=== PATIENT | female | born 1935 | race Caucasian/White ===

== ENCOUNTER 2017-09-15 10:50 | Outpatient (CLI) | payer MEDICARE, BC | END 2017-09-15 10:51 | disposition home or self-care (01) | LOC: BICRAD 10:50 | PROVIDERS: ATTEND Internal Medicine Gastroenterology | DX: K59.00 Constipation, unspecified (principal); R10.13 Epigastric pain; R06.02 Shortness of breath; I70.0 Atherosclerosis of aorta; R91.8 Other nonspecific abnormal finding of lung field; Z98.890 Other specified postprocedural states | CPT/HCPCS: 71046; 74019 ==

== ENCOUNTER 2017-09-20 14:10 | Outpatient (CLI) | payer MEDICARE, BC ==
--- NOTE | 2017-09-20 15:03 | ULT ---
RIGHT UPPER QUADRANT ULTRASOUND: History: Epigastric pain. Comparison: CT 01-24-17 FINDINGS: Pancreas is not well seen. The hepatic echotexture is coarsened. Main portal vein is patent with ante grade flow. Right kidney measures 10.5 x 4.7 x 4.8 cm without mass, hydronephrosis, or abnormal calcifications. G allbladder wall thickness is normal. The common bile duct is normal. IMPRESSION: 1. Increased hepatic echotexture suggestive of steatosis or other hepatic cellular disease. 2. Normal gallbladder. POS: [facility]
== END 2017-09-20 14:11 | disposition home or self-care (01) ==
LOC: ULT 14:10
PROVIDERS: ATTEND Internal Medicine Gastroenterology
DX: K59.03 Drug induced constipation (principal); R10.13 Epigastric pain; R06.02 Shortness of breath; K76.89 Other specified diseases of liver
CPT/HCPCS: 76705

== ENCOUNTER 2019-03-23 07:27 | Observation (INO) | payer MEDICARE, BC ==
[2019-03-23] MEDS ORDERED: Ondansetron PF 4 MG/2 ML Vial ONE (08:00)
[2019-03-23] MEDS ORDERED: Furosemide 40 MG/4 ML VIAL ONE (08:00)
[2019-03-23] MEDS ORDERED: Nitroglycerin 2% Ointment 1 INCH/1 GM Packet ONE (08:00)
[2019-03-23 08:12] LABS: #Basophils 0.1 thou/uL (0.0-0.2); #Lymphocytes 1.1 thou/uL (1.20-3.40); #Monocytes 0.5 thou/uL (0.11-0.59); #Neutrophils 9.4 thou/uL (1.40-6.50); %Basophils 0.5 % (0.0-1.0); %Eosinophils 0.3 % (0.0-10.0); %Monocytes 4.5 % (0.0-10.0); %Neutrophils 84.6 % (42.0-75.0); Hemoglobin 15.3 g/dL (12.0-16.0); Mean Corpuscular HGB CONC 33.2 g/dL (32.0-36.0); Mean Corpuscular Hemoglobin 29.8 pg (27.0-31.0); Mean Corpuscular Volume 89.6 fL (78.0-98.0); Mean Platelet Volume 7.5 fL (7.4-10.4); Platelet Count 331 thou/uL (130-400); RBC Distribution Width 11.4 % (11.5-14.5); Red Blood Cell (RBC) Count 5.13 mill/uL (4.20-5.40); White Blood Cell (WBC) Count 11.2 thou/uL (4.8-10.8)
[2019-03-23 09:05] LABS: ALT (SGPT) 29 U/L (8-55); AST (SGOT) 26 U/L (5-34); Albumin 4.6 g/dL (3.4-4.8); Alkaline Phosphatase 79 U/L (40-150); Anion Gap 13 mmol/L (10-20); BUN (Urea Nitrogen) 15 mg/dL (9.8-20.1); Bilirubin, Total 0.4 mg/dL (0.2-1.2); CK (CPK) 195 U/L (29-168); Calc. Creatinine Clearance 0 mL/min (70-130); Calcium 10.1 mg/dL (7.8-10.44); Carbon Dioxide 31 mmol/L (23-31); Chloride 96 mmol/L (98-107); Estimated GFR-MDRD 84; Globulin 3.9 g/dL (2.4-3.5); Glucose 114 mg/dL (83-110); Potassium 3.3 mmol/L (3.5-5.1); Protein, Total 8.5 g/dL (6.0-8.3); Sodium 137 mmol/L (136-145)
[2019-03-23] MEDS ORDERED: Acetaminophen 500 MG TAB ONE (09:46)
[2019-03-23] MEDS ORDERED: Metoclopramide HCl 10 MG/2 ML VIAL ONE (09:46)
[2019-03-23] MEDS ORDERED: Acetaminophen 325 MG/10.15 ML UDCUP ONE ×2 (09:52→09:54)
[2019-03-23] MEDS ORDERED: Benzonatate 100 MG CAP PO PRN (10:18)
[2019-03-23] MEDS ORDERED: Nitroglycerin 0.4 MG TAB (25 Tab Bottle) SL PRN (10:18)
[2019-03-23] MEDS ORDERED: Diabetic Tussin 200 MG/10 ML UDCUP PO PRN (10:18)
[2019-03-23] MEDS ORDERED: hydrALAZINE 20 MG/ML VIAL SLOW IVP PRN (10:18)
[2019-03-23] MEDS ORDERED: Senokot S 8.6-50 MG TAB PO PRN ×2 (10:18)
[2019-03-23] MEDS ORDERED: Acetaminophen 325 MG TAB PO PRN (10:18)
[2019-03-23] MEDS ORDERED: cloNIDine 0.1 MG TAB PO PRN (10:18)
[2019-03-23] MEDS ORDERED: Ondansetron PF 4 MG/2 ML Vial IVP PRN (10:18)
[2019-03-23] MEDS ORDERED: Sodium Chloride 0.65% Nasal 44 ML BOT EA NARE PRN (10:18)
[2019-03-23] MEDS ORDERED: Calcium Carbonate 500 MG ChewTAB PO PRN (10:18)
[2019-03-23] MEDS ORDERED: Bisacodyl 5 MG TAB PO PRN ×2 (10:18)
--- NOTE | 2019-03-23 11:04 | RAD ---
PORTABLE CHEST: HISTORY: Difficulty breathing. FINDINGS: Heart size is borderline with atherosclerotic change of the aorta. The lungs show some chronic adams e. No focal infiltrates. The patient reports a hiatal hernia, but it is difficult to definitely brady reciate a hernia. There is a questionable small hernia present. IMPRESSION: No acute changes. Questionable small hiatal hernia. POS: [facility]
[2019-03-23] MEDS ORDERED: Pantoprazole 40 MG VIAL IVP SCH (12:30)
[2019-03-23 12:58] VITALS: BMI 26.6
--- NOTE | 2019-03-23 13:21 | HP ---
PRIMARY CARE PHYSICIAN: Nathanael Rodriguez MD CHIEF COMPLAINT: Shortness of breath, nausea, vomiting, and diarrhea. HISTORY OF PRESENTING ILLNESS: Ms. Campbell is a pleasant 84-year-old female with past medical history of diverticulitis, hypertension, hypothyroidism, and history of skin cancer, who presented to the ER with above-mentioned complaints. History is mainly obtained from the patient herself and electronic medical records have been reviewed. Case has been discussed with the admitting ER physician, Dr. Guzman. Ms. Campbell reports that she has been in her usual health up until earlier this morning when she started to have severe abdominal cramp. She normally uses Fleet enema, but used water enema today and had two large bowel movements with relieving of the pain. Later, she started to feel short of breath, and shortly afterward, she started to have emesis of greenish stuff. Her blood pressure normally runs in the 130s, 140s to 150s range. It was not apparent if she is taking her medications or not, but it seems like that she does not really believe in it, though she has been prescribed "a water pill." She states that she may have not been taking it for the last few days. She also gives a history of a hiatal hernia and has been dealing with it for what seems like quite a few years. In her own words, she has been seen by multiple physicians all over [place], but she has not sought any surgical care for this. She takes a Nexium now and then for this, but it gives her a headache. She reports that her diet is very poor and she barely eats, though she does not lose any weight. She says that she drinks a huge amount of milk and bread and does not care for much solid food. She does eat a lot of Jell-O and whipped cream. Upon presentation to the emergency room, she was quite hypertensive with blood pressure systolic in the 210s to 220s range. Her chest x-ray, blood work, and EKG were rather within normal limits. Her BNP was normal. She received transdermal nitroglycerin as well as Lasix and Reglan along with Zofran in the ER with some improvement in her symptoms. She is now being admitted for workup for shortness of breath to rule out any cardiac causes. As per the patient's knowledge: She does not have any chronic lung diseases. She is a nonsmoker. PAST MEDICAL HISTORY: 1. Hypertension. 2. Dyslipidemia. 3. Hypothyroidism. 4. History of skin cancer. 5. History of diverticulitis, requiring colorectal surgery. This was done [place] [address] Lauren. PAST SURGICAL HISTORY: 1. . 2. Toe surgery. 3. Abdominoplasty. 4. Back surgery. 5. Bilateral knee surgery. 6. Surgery for diverticulitis. 7. Face lift. SOCIAL HISTORY: She is and lives with her . No history of drug, tobacco, or alcohol abuse. FAMILY HISTORY: No significant family history of coronary artery disease or stroke. Her father had colon cancer. REVIEW OF SYSTEMS: A 14-point review of systems was done and it is negative except for those mentioned in the history and physical. CODE STATUS: Full code discussed with the patient. ALLERGIES: IODINE AND SHELLFISH. HOME MEDICATIONS: As listed in the ER records: 1. Dyrenium, unknown dose. 2. [place] Thyroid, unknown dose. PHYSICAL EXAMINATION: VITAL SIGNS: Upon presentation, blood pressure 216/91, pulse of 82, respirations 20, temperature 98.6, and saturating 95% on room air. GENERAL: No acute distress. She is awake, alert, and oriented x3. Able to talk in full sentences, but does appear uncomfortable and holds her abdomen now and then. HEENT: Mucous membrane is moist and pink. No oropharyngeal exudate or erythema. Head is normocephalic and atraumatic. Pupils are equal and reactive to light and accommodation. Extraocular movement intact. NECK: Supple without any lymphadenopathy, JVD, or bruit. CHEST: Clear to auscultation without any wheezing, rales, or rhonchi. HEART: Rate and rhythm are regular without any murmurs, rubs, or gallops. ABDOMEN: Soft, nontender, and nondistended with positive bowel sounds. No rebound, guarding, or rigidity. She does not have any epigastric or right upper quadrant tenderness either. EXTREMITIES: Show trace pitting edema bilaterally. NEUROLOGIC: Examination is nonfocal. SKIN: Free of any rashes or bruises. Feels warm and dry to touch. PSYCHIATRIC: Normal affect. IMAGING STUDIES: Chest x-ray by my review does not show any significant pleural edema or any acute changes. A 12-lead EKG by my review shows normal sinus rhythm with some nonspecific T-wave abnormalities. IMPRESSION AND PLAN: 1. Dyspnea. Most likely scenario is flash pulmonary edema from uncontrolled hypertension. The patient does not have any history of cardiac disease per se. Her BNP and troponin are normal. 12-lead EKG by my review is normal sinus rhythm without any acute changes. We will get her blood pressure under control. Compliance seems to be a large issue as the patient states that she does not really like to take medications and it seems like she is also not taking her thyroid medications. We will continue transdermal nitroglycerin for now and get a transthoracic echocardiogram to rule out cardiac causes of her shortness of breath. There is no evidence to suggest any acute or chronic lung diseases clinically or on the chest x-ray. We will continue to trend serial cardiac enzymes. I will hold off on any more diuresis as she is not grossly fluid overloaded on my examination. We will start her on antihypertensives as necessary. Use p.r.n. antihypertensives for now. Also, check a TSH. 2. Hypertensive urgency. The patient has been noncompliant with her medication and the reports that the blood pressure runs in the 140s to 150s range at home. She was educated about medication compliance and comorbidities with uncontrolled hypertension. She will be started on her home medication once the dose is confirmed and adjusted as necessary. For the meanwhile, she is on transdermal nitroglycerin 0.5 inch three times a day. 3. Hiatal hernia. Her symptoms are being exacerbated by her hiatal hernia. Upon chart review, it seems like she has been seen by Dr. Lauren and Dr. Mendez in the past for similar problems. I have encouraged her to go back and get the hiatal hernia surgically fixed. She will be treated with IV Protonix for now. 4. Hypothyroidism. We will check her TSH and restart her home medication once the dose is confirmed. 5. Code status, full code discussed with the patient. 6. Deep venous thrombosis and gastrointestinal prophylaxis. DISPOSITION: Ms. Campbell is currently being admitted to the hospital with shortness of breath, likely due to flash pulmonary edema from uncontrolled hypertension. She is observation status. Further management will depend upon her clinical course. Job ID: [id number]
[2019-03-23] MEDS: Nitroglycerin 2% Ointment 1 INCH/1 GM Packet TOP SCH (15:58)
[2019-03-23] MEDS: HYDROcodone/Acetaminophen 10/325 mg Tablet PO SCH (17:55)
[2019-03-23] MEDS: Famotidine 20 MG TAB PO SCH (19:37)
[2019-03-24] MEDS: HYDROcodone/Acetaminophen 10/325 mg Tablet PO SCH ×4 (01:37→17:32)
[2019-03-24] MEDS: Nitroglycerin 2% Ointment 1 INCH/1 GM Packet TOP SCH ×2 (01:38→09:06)
[2019-03-24] MEDS: Thyroid 30 MG TAB PO SCH (05:35)
[2019-03-24] MEDS: Ondansetron PF 4 MG/2 ML Vial IVP PRN (05:48)
[2019-03-24 06:13] LABS: #Lymphocytes 1.2 thou/uL (1.20-3.40); #Monocytes 0.8 thou/uL (0.11-0.59); #Neutrophils 11.3 thou/uL (1.40-6.50); %Basophils 0.3 % (0.0-1.0); %Eosinophils 0.3 % (0.0-10.0); %Monocytes 6.1 % (0.0-10.0); %Neutrophils 84.3 % (42.0-75.0); Hemoglobin 15.3 g/dL (12.0-16.0); Mean Corpuscular HGB CONC 33.3 g/dL (32.0-36.0); Mean Corpuscular Hemoglobin 29.7 pg (27.0-31.0); Mean Corpuscular Volume 89.2 fL (78.0-98.0); Mean Platelet Volume 7.5 fL (7.4-10.4); Platelet Count 327 thou/uL (130-400); RBC Distribution Width 11.1 % (11.5-14.5); Red Blood Cell (RBC) Count 5.15 mill/uL (4.20-5.40); White Blood Cell (WBC) Count 13.3 thou/uL (4.8-10.8)
[2019-03-24 06:32] LABS: Anion Gap 12 mmol/L (10-20); BUN (Urea Nitrogen) 17 mg/dL (9.8-20.1); Calc. Creatinine Clearance 65 mL/min (70-130); Calcium 9.8 mg/dL (7.8-10.44); Carbon Dioxide 29 mmol/L (23-31); Chloride 97 mmol/L (98-107); Estimated GFR-MDRD 84; Glucose 139 mg/dL (83-110); Sodium 135 mmol/L (136-145)
[2019-03-24] MEDS: Famotidine 20 MG TAB PO SCH ×2 (09:10→20:03)
[2019-03-24] MEDS: Triamterene/Hydrochlorothiazide 37.5 mg/25 mg Tablet PO SCH (09:11)
[2019-03-24] MEDS: Enoxaparin Sodium 40 MG/0.4 ML SYRINGE SC SCH (09:12)
[2019-03-24] MEDS: Pantoprazole 40 MG VIAL IVP SCH (09:12)
[2019-03-24] MEDS ORDERED: Potassium Chloride 20 MEQ TAB PO SCH (09:15)
--- NOTE | 2019-03-24 15:07 | PDOC.PN ---
- Subjective Encounter Start Date: 03/24/19 Encounter Start Time: 15:05 Subjective: no CP/SOB but c/o worsening problems with food -: wants to be seen by surgeon .h/o hital hernia -: refuses to go home as she is not able to eat more than few bites - Objective Resuscitation Status - Order Detail: 03/23/19 12:25 Resuscitation Status Routine Resuscitation Status: FULL: Full Resuscitation Discussed with: discussed with patient MAR Reviewed: Yes Vital Signs & Weight: Vital Signs (12 hours) Temp Pulse Resp BP BP Pulse Ox 03/24/19 11:09 97.9 F 76 20 167/74 H 92 L 03/24/19 08:25 99.6 F 93 20 137/71 91 L 03/24/19 03:45 98.2 F 84 18 146/72 H 95 Weight Weight 145 lb 9 oz I&O: 03/23/19 03/24/19 03/25/19 06:59 06:59 06:59 Intake Total 502 Output Total 450 Balance 52 Result Diagrams: 03/24/19 05:58 03/24/19 05:58 Additional Labs: Laboratory Tests 03/23/19 03/23/19 03/23/19 07:54 13:11 13:11 Troponin I Less than 0.010 0.014 TSH 3rd Generation 0.8017 03/23/19 16:57 Troponin I Less than 0.010 TSH 3rd Generation Phys Exam - Physical Examination Constitutional: NAD tearful HEENT: PERRLA, moist MMs, sclera anicteric, oral pharynx no lesions Neck: no nodes, no JVD, supple, full ROM Respiratory: no wheezing, no rales, no rhonchi, clear to auscultation bilateral Cardiovascular: RRR, no significant murmur Gastrointestinal: soft, non-tender, no distention, positive bowel sounds Musculoskeletal: no edema, pulses present Neurological: non-focal, normal sensation, moves all 4 limbs Psychiatric: A&O x 3 Skin: no rash Dx/Plan (1) Dyspnea Code(s): R06.00 - DYSPNEA, UNSPECIFIED Status: Acute Comment: improved.ECHO pending (2) Hypertensive urgency Code(s): I16.0 - HYPERTENSIVE URGENCY Status: Resolved Comment: improved. Stop TD NG.cont traimeterene (3) Hiatal hernia Code(s): K44.9 - DIAPHRAGMATIC HERNIA WITHOUT OBSTRUCTION OR GANGRENE Status: Chronic Comment: GI work up was done as an outpatient recently. will get records - Plan plan discussed w/ family, DVT proph w/SCDs cardiac work up essentailly unremarkable so far.suspect symmptoms more d/t -: hiatal hernia.pt and very distraught as she is not eating much -: discussed w PCP DR. Rodriguez who has not seen them for a while -: noted OP GI work up done but they requesting GS consult inpt -: will request Dr. rico to advice on this as problem seems chronic * . Review of Systems - Review of Systems Constitutional: weakness, malaise. negative: fever, chills, sweats, other Respiratory: negative: Cough, Dry, Shortness of Breath, Hemoptysis, SOB with Excertion, Pleuritic Pain, Sputum, Wheezing Cardiovascular: negative: chest pain, palpitations, orthopnea, paroxysmal nocturnal dyspnea, edema, light headedness, other Gastrointestinal: Nausea, Other. negative: Vomiting, Abdominal Pain, Diarrhea, Constipation, Melena, Hematochezia Genitourinary: negative: Dysuria, Frequency, Incontinence, Hematuria, Retention , Other Musculoskeletal: negative: Neck Pain, Shoulder Pain, Arm Pain, Back Pain, Hand Pain, Leg Pain, Foot Pain, Other Skin: negative: Rash, Lesions, Yovany, Bruising, Other Neurological: negative: Weakness, Numbness, Incoordination, Change in Speech, Confusion, Seizures, Other - Medications/Allergies Allergies/Adverse Reactions: Allergies Allergy/AdvReac Type Severity Reaction Status Date / Time iodine Allergy Severe Verified 03/23/19 13:13 shellfish derived Allergy Severe Verified 03/23/19 13:13 Medications: Current Medications Acetaminophen (Tylenol) 650 mg PO Q4H PRN PRN Reason: Headache/Fever/Mild Pain (1-3) Hydrocodone Bitart/Acetaminophen ([place] 10/325) 1 tab PO Q6HR [place] Last Admin: 03/24/19 11:39 Dose: Not Given Benzonatate (Tessalon) 100 mg PO Q6H PRN PRN Reason: Cough Bisacodyl (Dulcolax) 10 mg PO DAILYPRN PRN PRN Reason: Constipation Calcium Carbonate (Tums) 1,000 mg PO Q4H PRN PRN Reason: Heartburn or Indigestion Clonidine (Catapres) 0.1 mg PO Q4H PRN PRN Reason: SBP > _160___ Enoxaparin Sodium (Lovenox) 40 mg SC 0900 [facility] Last Admin: 03/24/19 09:12 Dose: 40 mg Famotidine (Pepcid) 20 mg PO BID [facility] Last Admin: 03/24/19 09:10 Dose: 20 mg Guaifenesin (Robitussin Sf) 200 mg PO Q4H PRN PRN Reason: Cough Hydralazine HCl (Apresoline) 10 mg SLOW IVP Q4H PRN PRN Reason: SBP > 170 and HR < 70 Nitroglycerin (Nitrostat) 0.4 mg SL Q5MIN PRN PRN Reason: Chest Pain Ondansetron HCl (Zofran) 4 mg IVP Q6H PRN PRN Reason: Nausea/Vomiting Last Admin: 03/24/19 05:48 Dose: 4 mg Pantoprazole Sodium (Protonix) 40 mg IVP DAILY [facility] Last Admin: 03/24/19 09:12 Dose: 40 mg Senna/Docusate Sodium (Senokot S) 2 tab PO BID PRN PRN Reason: Constipation Sodium Chloride ([place] Nasal [place] 0.65%) 0 ml EA NARE QIDPRN PRN PRN Reason: Nasal Congestion Thyroid ([place] Thyroid) 30 mg PO 0600 [facility] Last Admin: 03/24/19 05:35 Dose: Not Given Triamterene/HCTZ (Maxzide-25) 0.5 tab PO DAILY [facility] Last Admin: 03/24/19 09:11 Dose: 0.5 tab
--- NOTE | 2019-03-24 15:20 | CON ---
DATE OF CONSULTATION: CHIEF COMPLAINT: Nausea, vomiting, vertigo, and dysphagia. HISTORY: The patient is an 84-year-old female, who reports about a 2-month history of progressive dysphagia. She says it occurs with both solids and liquids and usually after 2 to 3 bites that has been followed by bilious vomiting. She says she has not had any weight loss. She says drinking coffee helps. She said that she developed the room spinning yesterday when she was admitted, that resolved when they put oxygen on her. PAST MEDICAL HISTORY: Significant for hypertension, dyslipidemia, hypothyroidism, diverticulitis. PAST SURGICAL HISTORY: She has had an abdominoplasty, knee surgery, liposuction, breast reduction and reconstruction. She had a colon resection by Dr. Lauren for a colonic stricture complicated by ventral hernia that was repaired. She has had a lumbar back surgery as well as spinal stimulator placement and removal. SOCIAL HISTORY: She is . No tobacco or alcohol. FAMILY HISTORY: Mother had hypertension. Father had colon cancer. ALLERGIES: SHE HAS ALLERGIES TO SHELLFISH AND POSSIBLY IODINE. MEDICATIONS: 1. Dyrenium. 2. [place] Thyroid. PHYSICAL EXAMINATION: VITAL SIGNS: Temperature 97.9, pulse 79, blood pressure 167/74. GENERAL: She is a well-developed, well-nourished, somewhat anxious female, very talkative, does not appear to be in any distress. HEENT: Unremarkable. LUNGS: Clear. HEART: Regular rate and rhythm. ABDOMEN: Soft, nontender. She has a well-healed surgical scar, midline. No filling hernias. No tenderness. EXTREMITIES: Unremarkable. LABORATORY DATA: Her white count is 13, hemoglobin and hematocrit are 15 and 46, platelet count 327. Electrolytes; her potassium is 3, sodium 135, chloride 97, glucose 139. She had a chest x-ray that was clear. They really could not see any hiatal hernia on that, although she has been told she has one. She had a CT that showed hiatal hernia. She underwent EGD at that time. They did biopsies, showed erosive esophagitis. ASSESSMENT: Possible hiatal hernia. PLAN: Barium swallow. GI consultation. Job ID: [id number]
--- NOTE | 2019-03-24 21:51 | CON ---
DATE OF CONSULTATION: 03/24/2019 CHIEF COMPLAINT: Nausea and discomfort in the upper epigastric region. HISTORY OF PRESENT ILLNESS: Ms. Campbell woke up yesterday morning with dizziness and shortness of breath. She went to the bathroom and used an enema and passed a watery stool. After that, she has had no further diarrhea. She has had no ongoing abdominal pain, however, she has had persistent problems with nausea after eating. She can tolerate 2 or 3 spoonfuls of food and any more oral intake beyond that causes her to become nauseated and go out and vomit. When she eats she has to also drink water to push the food bolus down. She presented with hypertensive urgency to the emergency room with a blood pressure in the 210-220s range. She was treated with transdermal nitroglycerin with improvement. She underwent EGD and colonoscopy [address] Mendez[address] The colonoscopy showed diverticulosis of the sigmoid colon and an anastomosis at the site of previous sigmoid resection. A moderate hiatal hernia was noted as well as mild grade A erosive esophagitis. She has had chronic constipation. She takes opioid pain medication daily. She uses MiraLAX daily and sometimes uses fiber daily with it as well. To achieve a bowel movement, she gives herself a water enema and then passes a few small stools after the enemas. She has 1 or 2 bowel movements a day with the enema. PAST MEDICAL HISTORY: Hypertension, hypothyroidism, hyperlipidemia, skin cancer. PAST SURGICAL HISTORY: Colon resection for recurrent diverticulitis, toe surgery, abdominoplasty, spine surgery, knee surgery, diverticulitis, face-lift, breast surgery. Of note, she did have a polyp at the GE junction that was biopsied at the time of the previous endoscopy. This showed benign glandular mucosa with focal cells suggestive of early Galeano's. FAMILY HISTORY: Positive for colon cancer in her father. SOCIAL HISTORY: No alcohol, tobacco, or drugs. ALLERGIES: IODINE AND SHELLFISH. MEDICATIONS: Prior to admission, she takes an opioid pain medication, but could not recall the name. She takes Dyrenium, questionable compliance and also [place] Thyroid. REVIEW OF SYSTEMS: Negative x10 systems reviewed except as stated in the history of present illness. PHYSICAL EXAMINATION: VITAL SIGNS: Temperature 97.7, pulse 78, oxygen saturation 92% on room air, blood pressure 142/78. GENERAL: She is in no acute distress. She is alert and oriented x3. HEENT: Eyes have no scleral icterus. Oropharynx is clear without lesions. No cervical or supraclavicular lymphadenopathy. LUNGS: Clear to auscultation bilaterally. HEART: Regular rate and rhythm without murmur. ABDOMEN: Soft, nontender, and nondistended. Bowel sounds are present. EXTREMITIES: No lower extremity edema. LABORATORY DATA: White blood cell count 13.3, hemoglobin 15.3, platelets 327. Sodium 135, chloride 97, potassium 3.0, CO2 29, BUN 17, creatinine 0.67, bilirubin 0.4, AST 26, ALT 29, alkaline phosphatase 79, albumin 4.6. IMAGING: Her last ultrasound of the abdomen was in September of 2017, that showed a normal gallbladder with some signs of hepatic steatosis. She had CT scan of the abdomen and pelvis in January of 2017 that showed the postoperative changes from her previous colon resection and a hiatal hernia. IMPRESSION: 1. Early satiety and nausea. She feels sick if she takes more than 2 or 3 bites of food at a time. 2. Dysphagia. She has to frances her food bolus down with water. 3. Hiatal hernia. She has a moderate hiatal hernia, however, really denies reflux or heartburn symptoms. She does have the above noted mild dysphagia, but the more concerning symptom is nausea with any intake of significant volume. Her symptoms are not just clearly secondary to the hiatal hernia. We still would need to rule out peptic ulcer, gastritis, gastric cancer or esophageal stricture. Endoscopy really should be the next step. RECOMMENDATIONS: 1. I did offer endoscopy for tomorrow morning. The patient states that she does not need an endoscopy done that she needs surgeon and that she will consider following up with Dr. Mendez in the future, but does not want to have anything done currently. Dr. Mendez is available for endoscopy tomorrow, if she would be agreeable. 2. She was seen by Dr. Smith today as well, and she has barium swallow scheduled for tomorrow. Hopefully that will give us the necessary information to tell us the next best step. Ideally, she should have an adequate trial of PPI as the next step in treatment, however she had problems with headaches with Nexium previously. We should see how she does with an alternative PPI. We have pantoprazole here. 3. 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 This is not her main concern and she does not really wish to address that right now anyway. In the future, if it is determined what medicine she is taking, there are some other options for opioid- induced constipation, but for now what she is doing seems to be adequate. 4. I will sign off. Please call, if GI can be of assistance. Job ID: [id number] [facility]ENTERJameson
[2019-03-25] MEDS: HYDROcodone/Acetaminophen 10/325 mg Tablet PO SCH ×4 (00:10→16:46)
[2019-03-25] MEDS: Ondansetron PF 4 MG/2 ML Vial IVP PRN ×2 (05:43→16:46)
[2019-03-25] MEDS: Thyroid 30 MG TAB PO SCH (05:47)
[2019-03-25] MEDS ORDERED: diphenhydrAMINE 25 MG CAP PO PRN (09:02)
[2019-03-25] MEDS: Enoxaparin Sodium 40 MG/0.4 ML SYRINGE SC SCH (09:06)
[2019-03-25] MEDS: Triamterene/Hydrochlorothiazide 37.5 mg/25 mg Tablet PO SCH (09:06)
[2019-03-25] MEDS: Famotidine 20 MG TAB PO SCH ×2 (09:06→21:56)
[2019-03-25] MEDS: Pantoprazole 40 MG VIAL IVP SCH (09:07)
--- NOTE | 2019-03-25 09:21 | RAD ---
Esophagram HISTORY: Dysphagia. FINDINGS: Single column barium evaluation shows small sliding hiatal hernia. Diminished primary and s econdary peristalsis of the esophagus. There are nonpropulsive, tertiary type contractions at real-time fluoroscopy. Moderate amount of contrast within the mid to distal esophagus upon reflux. A 12 mm barium tablet traversed the esophagus without holdup. Calcification over the aortic arch. Fluoroscopy time 0.9 minutes. IMPRESSION: Small sliding hiatal hernia. Moderate amount of gastroesophageal reflux. Presbyesophagus. No evidence of obstruction. Atherosclerosis.
[2019-03-25] MEDS ORDERED: hydrALAZINE 20 MG/ML VIAL SLOW IVP PRN (12:42)
--- NOTE | 2019-03-25 13:37 | PRG ---
DATE OF SERVICE: 03/25/2019 SUBJECTIVE: The patient still has some nausea. No vomiting. OBJECTIVE: On exam, her temperature is 99.2, pulse 102, blood pressure is 121/74. She looks okay. She has some mild epigastric pain. The barium swallow showed that she does have a very small hiatal hernia, nothing causing obstruction. She did have chronic tertiary contractions of the esophagus. ASSESSMENT: Dysmotility. PLAN: GI consultation. Job ID: [id number]
--- NOTE | 2019-03-25 17:28 | PDOC.PN ---
- Subjective Encounter Start Date: 03/25/19 Encounter Start Time: 17:26 Subjective: continues to complain of nausea and difficulty eating,heartburn,pain -: would not let me discuss possible etiology & need for EGD.got upset as she -: has "read medical books and knows her problem is hiatal hernia only" refuses any GI work up - Objective Resuscitation Status - Order Detail: 03/23/19 12:25 Resuscitation Status Routine Resuscitation Status: FULL: Full Resuscitation Discussed with: discussed with patient MAR Reviewed: Yes Vital Signs & Weight: Vital Signs (12 hours) Temp Pulse Resp BP Pulse Ox 03/25/19 15:17 99 F 93 18 138/80 94 L 03/25/19 11:17 99.2 F 102 H 18 121/74 95 03/25/19 07:18 99.4 F 103 H 18 148/62 H 95 03/25/19 06:25 97 20 126/58 L 97 Weight Admit Weight 145 lb 9 oz Weight 145 lb 9 oz I&O: 03/24/19 03/25/19 03/26/19 06:59 06:59 06:59 Intake Total 502 752 Output Total 450 Balance 52 752 Result Diagrams: 03/24/19 05:58 03/24/19 05:58 Radiology Reviewed by me: Yes (ECHO-NL EF.Mild idastolic dysFx) Phys Exam - Physical Examination Constitutional: NAD HEENT: PERRLA, moist MMs, sclera anicteric, oral pharynx no lesions Neck: no nodes, no JVD, supple, full ROM Respiratory: no wheezing, no rales, no rhonchi, clear to auscultation bilateral Cardiovascular: RRR, no significant murmur Gastrointestinal: soft, non-tender, no distention, positive bowel sounds Musculoskeletal: no edema, pulses present Neurological: non-focal, normal sensation, moves all 4 limbs Psychiatric: normal affect, A&O x 3 Skin: no rash Dx/Plan (1) Dyspnea Code(s): R06.00 - DYSPNEA, UNSPECIFIED Status: Acute Comment: improved.ECHO with mild diastolic dysFx.suspect issues ar emore GI than Cardiac (2) Hypertensive urgency Code(s): I16.0 - HYPERTENSIVE URGENCY Status: Resolved Comment: improved. Stop TD NG.cont traimeterene (3) Hiatal hernia Code(s): K44.9 - DIAPHRAGMATIC HERNIA WITHOUT OBSTRUCTION OR GANGRENE Status: Chronic Comment: GI work up was done as an outpatient recently. will get records - Plan plan discussed w/ family Pt exhibiting bizzare beliefs.suspect that she may have symtpoms d/t reflux -: need to r/o malignacy/barrette's by EGD but keeps refusing. -: was not taking nexium at home d/y headache.tolerating protonix here so far -: Barium swollow shows small hernia but more reflux. -: carla defer to GI and GS as to how to proceed w difficult pt. * .Pt refused to talk to me about alternative possible diagnoses and continues to c/o symptoms * HD stable. * BP controlled. * no ACS or CHF. Review of Systems - Review of Systems Constitutional: malaise. negative: fever, chills, sweats, weakness, other ENT: negative: Ear Pain, Ear Discharge, Nose Pain, Nose Discharge, Nose Congestion, Mouth Pain, Mouth Swelling, Throat Pain, Throat Swelling, Other Cardiovascular: negative: chest pain, palpitations, orthopnea, paroxysmal nocturnal dyspnea, edema, light headedness, other Gastrointestinal: Nausea, Abdominal Pain. negative: Vomiting, Diarrhea, Constipation, Melena, Hematochezia, Other Genitourinary: negative: Dysuria, Frequency, Incontinence, Hematuria, Retention , Other Skin: negative: Rash, Lesions, Yovany, Bruising, Other Neurological: negative: Weakness, Numbness, Incoordination, Change in Speech, Confusion, Seizures, Other - Medications/Allergies Allergies/Adverse Reactions: Allergies Allergy/AdvReac Type Severity Reaction Status Date / Time iodine Allergy Severe Verified 03/25/19 10:55 shellfish derived Allergy Severe Verified 03/23/19 13:13 hydralazine [From Apresoline] Allergy Intermediate Rash Verified 03/25/19 10:55 Medications: Current Medications Acetaminophen (Tylenol) 650 mg PO Q4H PRN PRN Reason: Headache/Fever/Mild Pain (1-3) Hydrocodone Bitart/Acetaminophen ([place] 10/325) 1 tab PO Q6HR [facility] Last Admin: 03/25/19 16:46 Dose: Not Given Benzonatate (Tessalon) 100 mg PO Q6H PRN PRN Reason: Cough Bisacodyl (Dulcolax) 10 mg PO DAILYPRN PRN PRN Reason: Constipation Calcium Carbonate (Tums) 1,000 mg PO Q4H PRN PRN Reason: Heartburn or Indigestion Clonidine (Catapres) 0.1 mg PO Q4H PRN PRN Reason: SBP > _160___ Last Admin: 03/24/19 16:00 Dose: 0.1 mg Diphenhydramine HCl (Benadryl) 25 mg PO Q6H PRN PRN Reason: Itching & Insomnia Last Admin: 03/25/19 09:06 Dose: 25 mg Enoxaparin Sodium (Lovenox) 40 mg SC 0900 [facility] Last Admin: 03/25/19 09:06 Dose: 40 mg Famotidine (Pepcid) 20 mg PO BID [facility] Last Admin: 03/25/19 09:06 Dose: 20 mg Guaifenesin (Robitussin Sf) 200 mg PO Q4H PRN PRN Reason: Cough Hydralazine HCl (Apresoline) 10 mg SLOW IVP Q4H PRN PRN Reason: SBP > 170 and HR < 70 Nitroglycerin (Nitrostat) 0.4 mg SL Q5MIN PRN PRN Reason: Chest Pain Ondansetron HCl (Zofran) 4 mg IVP Q6H PRN PRN Reason: Nausea/Vomiting Last Admin: 03/25/19 16:46 Dose: 4 mg Pantoprazole Sodium (Protonix) 40 mg PO DAILY [facility] Senna/Docusate Sodium (Senokot S) 2 tab PO BID PRN PRN Reason: Constipation Sodium Chloride ([place] Nasal [place] 0.65%) 0 ml EA NARE QIDPRN PRN PRN Reason: Nasal Congestion Sodium Chloride (Flush - Normal Saline) 10 ml IVF PRN PRN PRN Reason: Saline Flush Thyroid ([place] Thyroid) 30 mg PO 0600 [facility] Last Admin: 03/25/19 05:47 Dose: Not Given Triamterene/HCTZ (Maxzide-25) 0.5 tab PO DAILY [facility] Last Admin: 03/25/19 09:06 Dose: 0.5 tab
--- NOTE | 2019-03-25 17:37 | PRG ---
DATE OF SERVICE: 03/25/2019 SUBJECTIVE: I have been asked to re-evaluate Ms. Campbell. She did have an upper GI with Dr. Smith today. It did show some tertiary contractions and some weakened primary peristalsis. However, a 12 mm barium tablet went down quickly through the esophagus. There was a small hiatal hernia present. She notes that ever since her surgery, for severe diverticular disease, she has had a sense of early satiety and will vomit if she over eats. She has constipation for which she needs to take MiraLAX daily. She had a normal colonoscopy with normal sigmoid anastomosis in 2017 except for one small polyp. 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 She has taken Protonix or Nexium, but thinks it gives her headache. She had an ultrasound of her gallbladder last year as well that was normal. She continues to take Vicodin on a regular basis about 3 to 4 a day. She did have a previous GI evaluation, which also included a CAT scan of the abdomen and pelvis in 01/2017, which was normal. OBJECTIVE: VITAL SIGNS: Temperature 99.2 to 99.4, blood pressure 138/80, pulse 93. ABDOMEN: Soft and nontender. LUNGS: Clear. HEART: Regular rate and rhythm. LABORATORY DATA: White count on was 13.3. Platelet count was 327. Comprehensive metabolic profile was notable for sodium of 135, potassium 3.0, bicarb of 29, chloride of 97, BUN and creatinine were 17 and 0.67. Troponins were negative. BNP was 59. TSH was 0.8. ASSESSMENT: 1. Intermittent nausea and vomiting of unclear etiology. I think a lot of it probably is related to motility issues, possibly related to her chronic pain medications and possibly related to her prior abdominal surgeries. 2. Reflux with small hiatal hernia. 3. Vague esophageal dysmotility on barium swallow, however, a 12 mm barium tablet passed through the esophagus rapidly without any hang-up. I do not think that a manometry is going to add anything in her evaluation and I think the motility issues are probably more related to her chronic pain medication use. 4. Hypertensive crisis on admission, resolved. 5. Acute nausea and vomiting on admission. I think this is probably viral as she had diarrhea too, and she has a mild leukocytosis and low-grade temperature. Her diarrhea is now resolved. RECOMMENDATIONS: 1. EGD tomorrow. We would go ahead and place her back on some IV fluids, make her n.p.o. after midnight and plan for that. If that is negative and she persisted having upper GI symptoms, we would get a gastric emptying scan. 2. I think that at her advanced age and with her small hiatal hernia, I do not think that an anti-reflux surgery is going to make her stomach any better, in fact it may make things worse as she has poor esophageal motility and I have told her that. Job ID: [id number]
[2019-03-26] MEDS: HYDROcodone/Acetaminophen 10/325 mg Tablet PO SCH ×4 (00:20→17:42)
[2019-03-26] MEDS: Ondansetron PF 4 MG/2 ML Vial IVP PRN ×2 (00:39→06:42)
[2019-03-26 04:34] LABS: #Eosinphils 0.2 thou/uL (0.0-0.7); #Lymphocytes 2.3 thou/uL (1.20-3.40); #Monocytes 0.9 thou/uL (0.11-0.59); %Basophils 0.5 % (0.0-1.0); %Eosinophils 2.1 % (0.0-10.0); %Lymphocytes 27.6 % (21.0-51.0); %Monocytes 10.4 % (0.0-10.0); %Neutrophils 59.5 % (42.0-75.0); Hemoglobin 14.9 g/dL (12.0-16.0); Mean Corpuscular HGB CONC 33.2 g/dL (32.0-36.0); Mean Corpuscular Hemoglobin 29.9 pg (27.0-31.0); Mean Corpuscular Volume 90.1 fL (78.0-98.0); Mean Platelet Volume 7.6 fL (7.4-10.4); Platelet Count 333 thou/uL (130-400); RBC Distribution Width 11.1 % (11.5-14.5); Red Blood Cell (RBC) Count 4.97 mill/uL (4.20-5.40); White Blood Cell (WBC) Count 8.5 thou/uL (4.8-10.8)
[2019-03-26 04:53] LABS: Anion Gap 14 mmol/L (10-20); BUN (Urea Nitrogen) 16 mg/dL (9.8-20.1); Calc. Creatinine Clearance 63 mL/min (70-130); Calcium 9.7 mg/dL (7.8-10.44); Carbon Dioxide 26 mmol/L (23-31); Chloride 99 mmol/L (98-107); Estimated GFR-MDRD 81; Glucose 94 mg/dL (83-110); Magnesium 2.3 mg/dL (1.6-2.6); Potassium 3.8 mmol/L (3.5-5.1); Sodium 135 mmol/L (136-145)
[2019-03-26] MEDS: Thyroid 30 MG TAB PO SCH (06:22)
[2019-03-26] MEDS ORDERED: Morphine 4 MG/ML VIAL SLOW IVP PRN (07:51)
[2019-03-26] MEDS: Famotidine 20 MG TAB PO SCH (07:56)
[2019-03-26] MEDS: Triamterene/Hydrochlorothiazide 37.5 mg/25 mg Tablet PO SCH (07:56)
[2019-03-26] MEDS: Enoxaparin Sodium 40 MG/0.4 ML SYRINGE SC SCH (07:56)
[2019-03-26] MEDS ORDERED: Morphine 4 MG/ML VIAL SLOW IVP SCH (08:00)
--- NOTE | 2019-03-26 20:34 | PDOC.HOSPP ---
- Subjective Subjective: f/u for abd pain and nausea s/p EGD showing small hiatal hernia. Feels fine overall and tolerating more po intake. - Objective Vital Signs & Weight: Vital Signs (12 hours) Temp Pulse Resp BP Pulse Ox 03/26/19 19:15 98.6 F 86 16 142/79 H 92 L 03/26/19 15:30 98.7 F 78 16 139/74 94 L 03/26/19 11:37 99.0 F 84 20 129/80 94 L Weight Admit Weight 145 lb 9 oz Weight 145 lb 9 oz I&O: 03/25/19 03/26/19 03/27/19 06:59 06:59 06:59 Intake Total 752 890 250 Balance 752 890 250 Result Diagrams: 03/26/19 04:24 03/26/19 04:24 Radiology Reviewed by me: Yes (EGD - small hiatal hernia) ROS - Review of Systems All systems: All other ROS were reviewed and found negative. - Medication Medications: Active Medications Generic Name Dose Route Start Last Admin Trade Name Freq PRN Reason Stop Dose Admin Hydrocodone Bitart/Acetaminophen 1 tab 03/23/19 18:00 03/26/19 17:42 [place] 10/325 PO Not Given Q6HR [facility] Clonidine 0.1 mg 03/23/19 10:18 03/24/19 16:00 Catapres PO 0.1 mg Q4H PRN Administration SBP > _160___ Diphenhydramine HCl 25 mg 03/25/19 09:02 03/25/19 09:06 Benadryl PO 25 mg Q6H PRN Administration Itching & Insomnia Enoxaparin Sodium 40 mg 03/24/19 09:00 03/26/19 07:56 Lovenox SC Not Given 0900 [facility] Ondansetron HCl 4 mg 03/23/19 10:18 03/26/19 06:42 Zofran IVP 4 mg Q6H PRN Administration Nausea/Vomiting Pantoprazole Sodium 40 mg 03/26/19 09:00 03/26/19 07:56 Protonix PO Not Given DAILY [facility] Sodium Chloride 10 ml 03/25/19 17:10 03/26/19 06:42 Flush - Normal Saline IVF 10 ml PRN PRN Administration Saline Flush Thyroid 30 mg 03/24/19 06:00 03/26/19 06:22 Bim Thyroid PO Not Given 0600 [facility] Triamterene/HCTZ 0.5 tab 03/24/19 09:00 03/26/19 07:56 Maxzide-25 PO Not Given DAILY [facility] - Exam NAD, awake alert Eye: PERRL, anicteric sclera ENT: normocephalic atraumatic, no oropharyngeal lesions Neck: supple, symmetric, no JVD, no Thyromegaly, no lymphadenopathy Heart: RRR, no murmur, no gallops, no rubs Respiratory: CTAB, no wheezes, no rales, no ronchi Gastrointestinal: soft, non-tender, non-distended, normal bowel sounds, no palpable masses Extremities: no cyanosis, no clubbing, no edema Skin: normal turgor, no lesions, no rashes Neurological: CN's grossly intact, no focal deficits Psychiatric: normal behavior, A&O x 3 Hosp A/P (1) Abdominal pain Code(s): R10.9 - UNSPECIFIED ABDOMINAL PAIN Status: Acute Qualifiers: Abdominal location: generalized Qualified Code(s): R10.84 - Generalized abdominal pain Plan: Resolving, likely due to chronic opiate use, regular bowel regimen, gastric emptying study in am (2) Anorexia Code(s): R63.0 - ANOREXIA Status: Acute Plan: Likely due to chronic opiate use, encourage increased po intake and limit narcotic use (3) Hiatal hernia Code(s): K44.9 - DIAPHRAGMATIC HERNIA WITHOUT OBSTRUCTION OR GANGRENE Status: Chronic Plan: Small hernia noted on EGD, supportive mgmt (4) Hypertensive urgency Code(s): I16.0 - HYPERTENSIVE URGENCY Status: Acute Plan: Resolved, continue home BP regimen, Echo with EF 60-65%, diastolic dysfunction - Plan out of bed/ambulate, DVT proph w/SCDs Stable currently Continue home BP regimen PPI Advance diet as tolerated Gastric emptying exam in am Likely home 03/27/19
--- NOTE | 2019-03-26 21:21 | OP ---
DATE OF PROCEDURE: 03/26/2019 PROCEDURE PERFORMED: Esophagogastroduodenoscopy. PREMEDICATION: Given by Anesthesiology Department. PREPROCEDURE DIAGNOSES: 1. Nausea. 2. Early satiety. POSTPROCEDURE DIAGNOSES: 1. A 4 cm waist hiatal hernia. 2. Otherwise normal esophagus, stomach, and duodenum. 3. Patent pylorus. DESCRIPTION OF PROCEDURE: Written consents were obtained prior to procedure. After adequate sedation, forward-viewing endoscope was advanced down the stomach and under direct vision to the third portion of duodenum. The duodenum appeared normal. The bulb appeared normal. The pylorus was patent. The gastric antrum, body, fundus , and cardia all appeared normal. Retroflexion demonstrated a 4 cm waist hiatal hernia when the stomach was fully insufflated. The hiatal hernia waist was noted at 38 cm from the incisors. The Z-line was noted at 34 cm from the incisors. The esophageal mucosa appears normal. The patient tolerated the procedure well. ASSESSMENT: 1. A 4 cm waist hiatal hernia measuring 4 cm in length. 2. Otherwise normal upper endoscopy. 3. No explanation for the patient's symptoms based on this exam. PLAN: We will obtain nuclear gastric emptying scan for assess for any gastric dysmotility. Job ID: [id number] [facility]
[2019-03-27] MEDS: HYDROcodone/Acetaminophen 10/325 mg Tablet PO SCH ×3 (00:55→13:31)
[2019-03-27] MEDS: Ondansetron PF 4 MG/2 ML Vial IVP PRN (06:18)
[2019-03-27] MEDS: Thyroid 30 MG TAB PO SCH (06:37)
[2019-03-27] MEDS: Triamterene/Hydrochlorothiazide 37.5 mg/25 mg Tablet PO SCH (13:05)
[2019-03-27] MEDS: Enoxaparin Sodium 40 MG/0.4 ML SYRINGE SC SCH (13:10)
--- NOTE | 2019-03-27 13:58 | NM ---
Nuclear medicine gastric emptying examination 03/27/2019 COMPARISON: None HISTORY: Nausea with meals, early satiety TECHNIQUE: The patient ingested 1.9 mCi technetium 99 M labeled sulfur colloid within a scrambled egg FINDINGS: Radiotracer activity is seen within the stomach on post ingestion imaging. There is 22% emp tying by 30 minutes, 61% emptying by 1 hour, 91% emptying by 2 hours, and 97% emptying at 3 hours. The stomach appears 100% emptied at 4 hours. T1 half is 51 minutes, within normal limits. IMPRESSION: Normal gastric emptying formation.
[2019-03-27 16:06] VITALS: BP 137/62; TEMP 98.4
--- NOTE | 2019-03-28 05:32 | DIS ---
DATE OF ADMISSION: 03/23/2019 DATE OF DISCHARGE: 03/27/2019 DISCHARGE DIAGNOSES: 1. Abdominal pain; etiology unclear, resolving. 2. Anorexia; mild, improved. 3. Hiatal hernia, stable. 4. Hypertensive urgency, resolved. 5. Hypothyroidism, stable. CONSULTATIONS: Dr. Leblanc and Dr. Mendez with GI Service. Dr. Smith with General Surgery Service. PERTINENT LABORATORY AND X-RAY FINDINGS: Potassium ranged between 3.0 to 3.8, phosphorus 4.0, magnesium 2.3. LFTs within normal limits. Troponin I negative x3. TSH 0.80. CBC showed a white blood cell count ranged between 8.5 to 13.3. Portable chest x-ray, dated 03/23/2019, showed no acute cardiopulmonary process. Barium swallow exam, dated 03/25/2019, showed small sliding hiatal hernia. Moderate amount of gastroesophageal reflux. 2D transthoracic echocardiogram, dated 03/24/2019, showed a technically limited exam. Ejection fraction of 60% to 65%. Diastolic dysfunction noted. EGD, dated 03/26/2019, showed 4 cm hiatal hernia. Gastric emptying exam, dated 03/27/2019, showed normal gastric emptying exam. HOSPITAL COURSE: The patient was initially admitted after presenting with increased shortness of breath with associated nausea, vomiting, and diarrhea. The patient underwent extensive evaluation including metabolic screening as well as radiographic study to include GI evaluation. The patient underwent a barium swallow exam as well as EGD and gastric emptying study and all with essentially negative findings. The patient was treated supportively with IV fluids, antiemetics, and general supportive care. The patient clinically stabilized and exhibited stable vital signs throughout the remainder of the hospital course. The patient was resumed on her regular home medication regimen with recommendations for limiting narcotic exposure due to potential effects on intestinal motility. The patient overall remained clinically stable through the hospital course with telemetry monitoring showing a sinus mechanism without evidence of acute arrhythmia or dysrhythmia. I have examined the patient at the time of discharge and discussed followup instructions. The patient verbalized understanding and agreement, ready for discharge on 03/27/2019. DISCHARGE MEDICATIONS: 1. Nexium 20 mg p.o. daily. 2. [place] 10/325 mg 1 tablet p.o. q.6 hours p.r.n. pain. 3. [place] Thyroid 30 mg p.o. daily. 4. Triamterene/hydrochlorothiazide 37.5/25 mg half a tab p.o. daily. FOLLOWUP: The patient may follow up with her primary care provider, Dr. Nathanael Rodriguez, within 7 days of discharge. CONDITION ON DISCHARGE: Stable. ACTIVITY: Ad-annette. DIET: Heart healthy. CODE STATUS: Full. DISPOSITION: Home, 03/27/2019. Job ID: [id number]
== END 2019-03-27 16:33 | disposition home or self-care (01) ==
LOC: ERS 07:27 → 2SW 12:52
PROVIDERS: ADMIT Internal Medicine; ATTEND Internal Medicine
PROC: 0DJ08ZZ Inspection of Upper Intestinal Tract, Via Natural or Artificial Opening Endoscopic (ICD-10-PCS; principal; 2019-03-23)
DX: R10.13 Epigastric pain (principal); R11.2 Nausea with vomiting, unspecified; R68.81 Early satiety; R63.0 Anorexia; K44.9 Diaphragmatic hernia without obstruction or gangrene; I16.0 Hypertensive urgency; K22.4 Dyskinesia of esophagus; E03.9 Hypothyroidism, unspecified; K21.9 Gastro-esophageal reflux disease without esophagitis; R06.00 Dyspnea, unspecified; E78.5 Hyperlipidemia, unspecified; Z68.26 Body mass index [BMI] 26.0-26.9, adult; Z91.041 Radiographic dye allergy status; Z91.013 Allergy to seafood; Z88.8 Allergy status to other drugs, medicaments and biological substances; Z79.891 Long term (current) use of opiate analgesic; Z79.899 Other long term (current) drug therapy
CPT/HCPCS: 43235; 71045; 74220; 78264; 80048 ×2; 82550; 83735; 83880; 84100; 84484 ×2; 85025 ×2; 93005; 93306; 96372 ×3; 96374; 96375 ×3; 96376 ×4; 97139; 99285; A9541; G0378 ×6; 36415; 36416; 80053; 84443; C9113; J0360; J1650; J1940; J2270; J2405; J2765; Q0163

== ENCOUNTER 2021-05-03 09:23 | Outpatient (CLI) | payer MEDICARE, BC | END 2021-05-03 09:24 | disposition home or self-care (01) | LOC: TBSIIMAG 09:23 | PROVIDERS: ATTEND Nurse Practitioner Acute Care | DX: R51.9 Headache, unspecified (principal); I67.82 Cerebral ischemia | CPT/HCPCS: 70553 ==

== ENCOUNTER 2024-07-07 01:23 | Emergency (ER) | payer MEDICARE, BC ==
[2024-07-07 01:45] LABS: Actual Bicarbonate (HCO3v) 24.2 mEq/L (22-28); Analyzer IN Cardio ER; Base Excess 1.7 mEq/L (-2.0 to +3.0); Calcium, Ionized (venous) 1.15 mmol/L (1.16-1.32); Chloride (VBG) 105 mmol/L (98-106); Hematocrit-VBG 48 % (36.0-47.0); Hemoglobin (Hb) 16.2 g/dL (11.7-16.1); Potassium (VBG) 3.01 mmol/L (3.70-5.30); Sodium 144 mmol/L (133-146)
[2024-07-07 01:58] LABS: #Basophils Less than 0.03 10x3/uL (0.0-0.2); #Eosinophils Less than 0.03 10x3/uL (0.0-0.7); %Basophils 0.2 % (0.0-1.0); %Lymphocytes 7.7 % (21.0-51.0); %Monocytes 6.2 % (0.0-10.0); %Neutrophils 85.6 % (42.0-75.0); Hematocrit 45.8 % (36.0-47.0); Mean Corpuscular HGB CONC 34.9 g/dL (32.0-36.0); Mean Corpuscular Hemoglobin 31.2 pg (27.0-31.0); Mean Corpuscular Volume 89.3 fL (78.0-98.0); Mean Platelet Volume 9.8 fL (7.4-10.4); Platelet Count 328 10x3/uL (130-400); RBC Distribution Width 12.5 % (11.5-14.5); Red Blood Cell (RBC) Count 5.13 mill/uL (4.20-5.40)
[2024-07-07 02:00] LABS: ALT (SGPT) 36 U/L (8-55); AST (SGOT) 31 U/L (5-34); Albumin 3.8 g/dL (3.4-4.8); Alkaline Phosphatase 52 U/L (40-110); Anion Gap 16 mmol/L (10-20); BUN (Urea Nitrogen) 23 mg/dL (9.8-20.1); Bilirubin, Total 0.9 mg/dL (0.2-1.2); CK (CPK) 61 U/L (29-168); Calc. Creatinine Clearance 0 mL/min (70-130); Calcium 9.4 mg/dL (7.8-10.44); Carbon Dioxide 22 mmol/L (23-31); Chloride 106 mmol/L (98-107); Estimated GFR 79; Glucose 170 mg/dL (83-110); Lipase 20 U/L (8-78); Potassium 2.8 mmol/L (3.5-5.1); Protein, Total 7.8 g/dL (5.8-8.1); Sodium 141 mmol/L (136-145)
[2024-07-07 02:18] LABS: Bacteria/HPF None Seen HPF (None Seen); Bilirubin Negative (Negative); Blood, Urine Negative (Negative); CAUTI Indications for Culture Alt mental st,lethar; Clarity Clear (Clear); Glucose, Urine (Dipstick) Normal (Negative); Ketone, Urine 10 mg/dL (Negative); Leukocyte Negative Leu/uL (Negative); Nitrite Negative (Negative); Protein, Urine (Dipstick) 100 mg/dL (Neg-Trace); RBC/HPF 0-3 HPF (0-3); Specific Gravity, Urine 1.018 (1.002-1.036); Squamous Epithelial 0-3 HPF (0-3); Urobilinogen Normal mg/dL (Less than 2); WBC/HPF 0-3 HPF (0-3); pH, Urine 5.5 (5.0-9.0)
[2024-07-07 02:24] LABS: Urine Culture Reflex No No
[2024-07-07] MEDS ORDERED: Ondansetron PF 4 MG/2 ML Vial ONE (02:43)
[2024-07-07] MEDS ORDERED: NS 0.9% w/ 20 MEQ KCL 1,000 ML ONE (02:57)
[2024-07-07 05:07] LABS: Lactic Acid 2.08 mmol/L (0.5-2.2)
[2024-07-07] MEDS ORDERED: Iopamidol 370 76% 100 ML VIAL ONE (12:41)
== END 2024-07-07 06:33 | disposition home or self-care (01) ==
LOC: ERS 01:23
DX: E87.6 Hypokalemia (principal); K59.00 Constipation, unspecified; R41.0 Disorientation, unspecified; I10 Essential (primary) hypertension
CPT/HCPCS: 51701; 70450; 71260; 72125; 74177; 80053; 81001; 82550; 82805; 83605; 83690; 85025; 93005; 96374; 96375; 99285; J2405; J3480; Q9967; 36415

== ENCOUNTER 2024-07-10 00:10 | Inpatient (IN) | payer MEDICARE, BC ==
[2024-07-10 00:59] LABS: #Basophils Less than 0.03 10x3/uL (0.0-0.2); #Eosinophils Less than 0.03 10x3/uL (0.0-0.7); %Basophils 0.1 % (0.0-1.0); %Lymphocytes 9.7 % (21.0-51.0); %Monocytes 10.6 % (0.0-10.0); %Neutrophils 79.2 % (42.0-75.0); Hematocrit 44.4 % (36.0-47.0); Hemoglobin 15.9 g/dL (12.0-16.0); Mean Corpuscular HGB CONC 35.8 g/dL (32.0-36.0); Mean Corpuscular Volume 86.5 fL (78.0-98.0); Mean Platelet Volume 10.5 fL (7.4-10.4); Platelet Count 301 10x3/uL (130-400); RBC Distribution Width 11.9 % (11.5-14.5); Red Blood Cell (RBC) Count 5.13 mill/uL (4.20-5.40)
[2024-07-10 01:14] LABS: Lipase 41 U/L (8-78)
[2024-07-10 01:16] LABS: Anion Gap 18 mmol/L (10-20); BUN (Urea Nitrogen) 30 mg/dL (9.8-20.1); Calc. Creatinine Clearance 0 mL/min (70-130); Carbon Dioxide 22 mmol/L (23-31); Chloride 100 mmol/L (98-107); Potassium 2.8 mmol/L (3.5-5.1); Sodium 137 mmol/L (136-145)
[2024-07-10 01:17] LABS: ALT (SGPT) 46 U/L (8-55); AST (SGOT) 26 U/L (5-34); Acetaminophen Less than 10 mcg/mL (Less than 10); Albumin 3.7 g/dL (3.4-4.8); Alcohol Less than 10.0 mg/dL (Less than 10); Alkaline Phosphatase 41 U/L (40-110); Bilirubin, Total 1.9 mg/dL (0.2-1.2); CK (CPK) 92 U/L (29-168); Calcium 8.9 mg/dL (7.8-10.44); Estimated GFR 85; Globulin 3.2 g/dL (2.4-3.5); Glucose 149 mg/dL (83-110); Protein, Total 6.9 g/dL (5.8-8.1); Salicylate Less than 8.0 mg/dL (Less than 8.0)
[2024-07-10 01:19] LABS: Troponin I 0.087 ng/mL (< 0.028)
[2024-07-10 01:44] LABS: Magnesium 2.3 mg/dL (1.6-2.6)
[2024-07-10] MEDS ORDERED: Potassium Chloride 20 MEQ (100 mL) BAG ONE (02:05)
[2024-07-10] MEDS ORDERED: Potassium Chloride 20 MEQ TAB ONE (02:06)
[2024-07-10] MEDS ORDERED: Ondansetron ODT 4 MG TAB PO PRN (02:27)
[2024-07-10 03:53] LABS: ALT (SGPT) 43 U/L (8-55); AST (SGOT) 25 U/L (5-34); Albumin 3.6 g/dL (3.4-4.8); Alkaline Phosphatase 43 U/L (40-110); Anion Gap 19 mmol/L (10-20); BUN (Urea Nitrogen) 27 mg/dL (9.8-20.1); Bilirubin, Total 1.9 mg/dL (0.2-1.2); Calc. Creatinine Clearance 0 mL/min (70-130); Calcium 8.6 mg/dL (7.8-10.44); Carbon Dioxide 21 mmol/L (23-31); Chloride 101 mmol/L (98-107); Estimated GFR 85; Globulin 3.3 g/dL (2.4-3.5); Glucose 145 mg/dL (83-110); Potassium 2.5 mmol/L (3.5-5.1); Protein, Total 6.9 g/dL (5.8-8.1); Sodium 138 mmol/L (136-145)
[2024-07-10 04:15] VITALS: BMI 17.2
[2024-07-10 04:20] LABS: #Basophils Less than 0.03 10x3/uL (0.0-0.2); #Eosinophils Less than 0.03 10x3/uL (0.0-0.7); %Basophils 0.1 % (0.0-1.0); %Lymphocytes 9.1 % (21.0-51.0); %Neutrophils 80.4 % (42.0-75.0); Hematocrit 48.1 % (36.0-47.0); Hemoglobin 16.2 g/dL (12.0-16.0); Mean Corpuscular HGB CONC 33.7 g/dL (32.0-36.0); Mean Corpuscular Hemoglobin 30.9 pg (27.0-31.0); Mean Corpuscular Volume 91.6 fL (78.0-98.0); Mean Platelet Volume 10.3 fL (7.4-10.4); Platelet Count 268 10x3/uL (130-400); RBC Distribution Width 12.1 % (11.5-14.5); Red Blood Cell (RBC) Count 5.25 mill/uL (4.20-5.40)
[2024-07-10 04:47] LABS: Troponin I 0.071 ng/mL (< 0.028)
[2024-07-10] MEDS: HYDROcodone/Acetaminophen 10/325 mg Tablet PO SCH (04:58)
[2024-07-10] MEDS: cefTRIAXone\\ROCEPHIN 1 GM in Sodium Chloride 0.9% 100 ML IVPB SCH (04:59)
[2024-07-10 07:41] LABS: Troponin I 0.083 ng/mL (< 0.028)
[2024-07-10] MEDS: Enoxaparin 40 MG (0.4 mL) SYRINGE SC SCH (09:04)
[2024-07-10] MEDS: Potassium Chloride 20 MEQ TAB PO SCH ×2 (09:04→11:53)
[2024-07-10] MEDS: Acetaminophen 325 MG TAB PO PRN (09:05)
[2024-07-10] MEDS: Pantoprazole DR 40 MG TAB PO SCH (09:05)
[2024-07-10] MEDS: Famotidine/PF 20 mg/2ml Vial SLOW IVP SCH (09:05)
[2024-07-10] MEDS: Famotidine 20 MG TAB PO SCH (09:08)
[2024-07-10 10:22] LABS: Troponin I 0.067 ng/mL (< 0.028)
[2024-07-10] MEDS: Thyroid 30 MG TAB PO SCH (13:25)
[2024-07-10] MEDS: Labetalol HCl 100 MG/20 ML VIAL SLOW IVP PRN (13:25)
[2024-07-10] MEDS: Bisacodyl 10 MG SUPP PR SCH (15:16)
[2024-07-10] MEDS: Bisacodyl 5 MG TAB PO SCH (15:16)
[2024-07-10] MEDS: Senokot S 8.6-50 MG TAB PO SCH ×2 (15:16→20:46)
[2024-07-10] MEDS: Polyethylene Glycol 3350 17 GM Packet PO SCH (15:16)
[2024-07-10 15:40] LABS: Bacteria/HPF None Seen HPF (None Seen); Bilirubin Negative (Negative); Blood, Urine Trace (Negative); Clarity Clear (Clear); Glucose, Urine (Dipstick) Normal (Negative); Ketone, Urine 40 mg/dL (Negative); Leukocyte Negative Leu/uL (Negative); Nitrite Negative (Negative); Protein, Urine (Dipstick) 100 mg/dL (Neg-Trace); Specific Gravity, Urine 1.019 (1.002-1.036); Squamous Epithelial 0-3 HPF (0-3); Urobilinogen Normal mg/dL (Less than 2)
[2024-07-10 17:57] LABS: Magnesium 2.3 mg/dL (1.6-2.6)
[2024-07-10] MEDS: Ondansetron PF 4 MG/2 ML Vial IVP PRN (21:04)
[2024-07-11 04:31] LABS: #Basophils Less than 0.03 10x3/uL (0.0-0.2); #Eosinophils Less than 0.03 10x3/uL (0.0-0.7); %Basophils 0.1 % (0.0-1.0); %Lymphocytes 10.8 % (21.0-51.0); %Monocytes 8.9 % (0.0-10.0); %Neutrophils 79.7 % (42.0-75.0); Hematocrit 42.6 % (36.0-47.0); Hemoglobin 14.4 g/dL (12.0-16.0); Mean Corpuscular HGB CONC 33.8 g/dL (32.0-36.0); Mean Corpuscular Hemoglobin 31.2 pg (27.0-31.0); Mean Corpuscular Volume 92.2 fL (78.0-98.0); Mean Platelet Volume 11.2 fL (7.4-10.4); Platelet Count 234 10x3/uL (130-400); RBC Distribution Width 12.4 % (11.5-14.5); Red Blood Cell (RBC) Count 4.62 mill/uL (4.20-5.40)
[2024-07-11] MEDS ORDERED: Dextrose 50% Abboject 50 ML SYRINGE SLOW IVP PRN (05:19)
[2024-07-11] MEDS ORDERED: Dextrose 5% in Water 1,000 ML IV PRN (05:19)
[2024-07-11] MEDS ORDERED: Glucagon 1 MG/ML KIT IM PRN (05:19)
[2024-07-11 06:23] LABS: Anion Gap 12 mmol/L (10-20); BUN (Urea Nitrogen) 28 mg/dL (9.8-20.1); Calc. Creatinine Clearance 45 mL/min (70-130); Calcium 8.5 mg/dL (7.8-10.44); Carbon Dioxide 24 mmol/L (23-31); Chloride 107 mmol/L (98-107); Estimated GFR 85; Glucose 135 mg/dL (83-110); Sodium 139 mmol/L (136-145)
[2024-07-11] MEDS: Polyethylene Glycol 3350 17 GM Packet PO SCH (11:20)
[2024-07-11] MEDS: Mineral Oil ENEMA PR SCH (11:21)
[2024-07-11 11:51] VITALS: BMI 17.2
[2024-07-11] MEDS: Lansoprazole 30 MG/10 ML UDCUP PO SCH (14:13)
[2024-07-11] MEDS: Triamterene/Hydrochlorothiazide 37.5 mg/25 mg Tablet PO SCH (15:24)
[2024-07-11] MEDS: traMADol HCl 50 MG TAB PO PRN (21:42)
[2024-07-12] MEDS: HYDROcodone/Acetaminophen 5/325 mg Tablet PO PRN (01:46)
[2024-07-12] MEDS ORDERED: Sterile Water 10 ML VIAL FS PRN (05:00)
[2024-07-12] MEDS: OLANZapine 10 MG VIAL IM SCH (05:10)
[2024-07-12] MEDS: Lansoprazole 30 MG/10 ML UDCUP PO SCH (08:20)
[2024-07-12 09:14] LABS: #Basophils Less than 0.03 10x3/uL (0.0-0.2); %Basophils 0.1 % (0.0-1.0); %Eosinophils 1.1 % (0.0-10.0); %Lymphocytes 19.7 % (21.0-51.0); %Monocytes 7.5 % (0.0-10.0); %Neutrophils 71.3 % (42.0-75.0); Hematocrit 42.2 % (36.0-47.0); Hemoglobin 14.3 g/dL (12.0-16.0); Mean Corpuscular HGB CONC 33.9 g/dL (32.0-36.0); Mean Corpuscular Hemoglobin 31.2 pg (27.0-31.0); Mean Corpuscular Volume 92.1 fL (78.0-98.0); Mean Platelet Volume 10.8 fL (7.4-10.4); Platelet Count 230 10x3/uL (130-400); Red Blood Cell (RBC) Count 4.58 mill/uL (4.20-5.40)
[2024-07-12 09:34] LABS: Anion Gap 12 mmol/L (10-20); BUN (Urea Nitrogen) 18 mg/dL (9.8-20.1); Calc. Creatinine Clearance 53 mL/min (70-130); Calcium 8.5 mg/dL (7.8-10.44); Carbon Dioxide 28 mmol/L (23-31); Chloride 100 mmol/L (98-107); Estimated GFR 88; Glucose 92 mg/dL (83-110); Potassium 3.4 mmol/L (3.5-5.1); Sodium 137 mmol/L (136-145)
[2024-07-12] MEDS: Haloperidol Lactate 5 MG/ML VIAL SLOW IVP SCH (10:07)
[2024-07-12] MEDS: Triamterene/Hydrochlorothiazide 37.5 mg/25 mg Tablet PO SCH (10:07)
[2024-07-12] MEDS: QUEtiapine 25 MG TAB PO SCH (20:00)
[2024-07-13] MEDS: cloNIDine 0.1 MG TAB PO SCH (01:41)
[2024-07-13 04:50] LABS: #Basophils 0.03 10x3/uL (0.0-0.2); #Eosinophils Less than 0.03 10x3/uL (0.0-0.7); %Basophils 0.1 % (0.0-1.0); %Lymphocytes 3.1 % (21.0-51.0); %Monocytes 4.8 % (0.0-10.0); %Neutrophils 91.5 % (42.0-75.0); Hematocrit 48.5 % (36.0-47.0); Hemoglobin 16.7 g/dL (12.0-16.0); Mean Corpuscular HGB CONC 34.4 g/dL (32.0-36.0); Mean Corpuscular Hemoglobin 31.2 pg (27.0-31.0); Mean Corpuscular Volume 90.5 fL (78.0-98.0); Mean Platelet Volume 11.2 fL (7.4-10.4); Platelet Count 250 10x3/uL (130-400); RBC Distribution Width 12.1 % (11.5-14.5); Red Blood Cell (RBC) Count 5.36 mill/uL (4.20-5.40)
[2024-07-13 05:05] LABS: Anion Gap 16 mmol/L (10-20); BUN (Urea Nitrogen) 16 mg/dL (9.8-20.1); Calc. Creatinine Clearance 60 mL/min (70-130); Calcium 8.2 mg/dL (7.8-10.44); Carbon Dioxide 18 mmol/L (23-31); Chloride 103 mmol/L (98-107); Estimated GFR 91; Glucose 139 mg/dL (83-110); Potassium 3.4 mmol/L (3.5-5.1); Sodium 134 mmol/L (136-145)
[2024-07-13] MEDS: Amlodipine 10 MG TAB PO SCH (08:57)
[2024-07-13] MEDS ORDERED: cefTRIAXone\\ROCEPHIN 1 GM in Sodium Chloride 0.9% 100 ML IVPB SCH (16:30)
[2024-07-13 16:44] LABS: Bilirubin Negative (Negative); Blood, Urine 3+ (Negative); Clarity Turbid (Clear); Glucose, Urine (Dipstick) Normal (Negative); Ketone, Urine 40 mg/dL (Negative); Leukocyte Negative Leu/uL (Negative); Nitrite Negative (Negative); Protein, Urine (Dipstick) 70 mg/dL (Neg-Trace); RBC/HPF Greater than 50 HPF (0-3); Specific Gravity, Urine 1.014 (1.002-1.036); Urobilinogen Normal mg/dL (Less than 2); WBC/HPF 0-3 HPF (0-3); pH, Urine 6.5 (5.0-9.0)
[2024-07-13 16:45] LABS: Bacteria/HPF None Seen HPF (None Seen); CAUTI Indications for Culture Alt mental st,lethar; Squamous Epithelial 0-3 HPF (0-3)
[2024-07-13 16:46] LABS: Urine Culture Reflex No No
[2024-07-13 20:10] LABS: Phosphorus 3.7 mg/dL (2.3-4.7)
[2024-07-13] MEDS: Melatonin 3 MG TAB PO SCH (21:14)
[2024-07-14 04:50] LABS: #Basophils Less than 0.03 10x3/uL (0.0-0.2); %Basophils 0.1 % (0.0-1.0); %Eosinophils 1.2 % (0.0-10.0); %Lymphocytes 12.5 % (21.0-51.0); %Monocytes 9.2 % (0.0-10.0); %Neutrophils 76.3 % (42.0-75.0); Hematocrit 44.2 % (36.0-47.0); Hemoglobin 15.1 g/dL (12.0-16.0); Mean Corpuscular HGB CONC 34.2 g/dL (32.0-36.0); Mean Corpuscular Hemoglobin 30.9 pg (27.0-31.0); Mean Corpuscular Volume 90.4 fL (78.0-98.0); Mean Platelet Volume 11.2 fL (7.4-10.4); Platelet Count 293 10x3/uL (130-400); RBC Distribution Width 12.3 % (11.5-14.5); Red Blood Cell (RBC) Count 4.89 mill/uL (4.20-5.40)
[2024-07-14 05:06] LABS: Anion Gap 16 mmol/L (10-20); BUN (Urea Nitrogen) 24 mg/dL (9.8-20.1); Calc. Creatinine Clearance 44 mL/min (70-130); Calcium 8.6 mg/dL (7.8-10.44); Carbon Dioxide 26 mmol/L (23-31); Chloride 97 mmol/L (98-107); Estimated GFR 84; Glucose 114 mg/dL (83-110); Potassium 3.1 mmol/L (3.5-5.1); Sodium 136 mmol/L (136-145)
[2024-07-14] MEDS: OLANZapine 10 MG VIAL IM SCH (07:42)
[2024-07-14] MEDS: Sterile Water 10 ML VIAL FS SCH (07:45)
[2024-07-14] MEDS: Potassium Chloride 20 MEQ TAB PO SCH (11:38)
[2024-07-14] MEDS: Sodium Chloride 0.9% 1,000 ML IV SCH (13:03)
[2024-07-14] MEDS: traZODone HCl 50 MG TAB PO SCH (19:49)
[2024-07-14] MEDS ORDERED: QUEtiapine 25 MG TAB PO SCH (21:00)
[2024-07-15 06:41] LABS: #Basophils Less than 0.03 10x3/uL (0.0-0.2); %Basophils 0.2 % (0.0-1.0); %Eosinophils 3.2 % (0.0-10.0); %Lymphocytes 17.1 % (21.0-51.0); %Monocytes 12.4 % (0.0-10.0); %Neutrophils 66.3 % (42.0-75.0); Hematocrit 41.3 % (36.0-47.0); Hemoglobin 13.9 g/dL (12.0-16.0); Mean Corpuscular HGB CONC 33.7 g/dL (32.0-36.0); Mean Corpuscular Hemoglobin 31.4 pg (27.0-31.0); Mean Corpuscular Volume 93.2 fL (78.0-98.0); Platelet Count 283 10x3/uL (130-400); RBC Distribution Width 12.5 % (11.5-14.5); Red Blood Cell (RBC) Count 4.43 mill/uL (4.20-5.40)
[2024-07-15 07:02] LABS: Anion Gap 13 mmol/L (10-20); BUN (Urea Nitrogen) 16 mg/dL (9.8-20.1); Calc. Creatinine Clearance 51 mL/min (70-130); Calcium 8.2 mg/dL (7.8-10.44); Carbon Dioxide 21 mmol/L (23-31); Chloride 107 mmol/L (98-107); Estimated GFR 88; Glucose 99 mg/dL (83-110); Potassium 4.1 mmol/L (3.5-5.1); Sodium 137 mmol/L (136-145)
[2024-07-15] MEDS: Fleet Saline Enema 133 ML BOT PR SCH (17:07)
[2024-07-16 05:54] LABS: #Basophils Less than 0.03 10x3/uL (0.0-0.2); %Basophils 0.2 % (0.0-1.0); %Eosinophils 1.9 % (0.0-10.0); %Lymphocytes 13.9 % (21.0-51.0); %Monocytes 10.7 % (0.0-10.0); %Neutrophils 72.6 % (42.0-75.0); Hematocrit 38.3 % (36.0-47.0); Hemoglobin 13.3 g/dL (12.0-16.0); Mean Corpuscular HGB CONC 34.7 g/dL (32.0-36.0); Mean Corpuscular Hemoglobin 31.8 pg (27.0-31.0); Mean Corpuscular Volume 91.6 fL (78.0-98.0); Mean Platelet Volume 10.7 fL (7.4-10.4); Platelet Count 322 10x3/uL (130-400); RBC Distribution Width 12.3 % (11.5-14.5); Red Blood Cell (RBC) Count 4.18 mill/uL (4.20-5.40)
[2024-07-16 06:27] LABS: Anion Gap 11 mmol/L (10-20); BUN (Urea Nitrogen) 7 mg/dL (9.8-20.1); Calc. Creatinine Clearance 54 mL/min (70-130); Calcium 8.2 mg/dL (7.8-10.44); Carbon Dioxide 23 mmol/L (23-31); Chloride 103 mmol/L (98-107); Estimated GFR 89; Glucose 95 mg/dL (83-110); Potassium 2.8 mmol/L (3.5-5.1); Sodium 134 mmol/L (136-145)
[2024-07-16] MEDS: Potassium Chloride 20 MEQ TAB PO SCH (09:31)
[2024-07-16] MEDS: QUEtiapine 25 MG TAB PO SCH (19:49)
[2024-07-17 05:51] LABS: #Basophils Less than 0.03 10x3/uL (0.0-0.2); %Basophils 0.2 % (0.0-1.0); %Eosinophils 3.6 % (0.0-10.0); %Lymphocytes 18.4 % (21.0-51.0); %Monocytes 12.7 % (0.0-10.0); %Neutrophils 64.4 % (42.0-75.0); Hematocrit 38.2 % (36.0-47.0); Hemoglobin 13.1 g/dL (12.0-16.0); Mean Corpuscular HGB CONC 34.3 g/dL (32.0-36.0); Mean Corpuscular Hemoglobin 31.6 pg (27.0-31.0); Mean Platelet Volume 10.7 fL (7.4-10.4); Platelet Count 328 10x3/uL (130-400); RBC Distribution Width 12.6 % (11.5-14.5); Red Blood Cell (RBC) Count 4.15 mill/uL (4.20-5.40)
[2024-07-17 06:04] LABS: Anion Gap 13 mmol/L (10-20); BUN (Urea Nitrogen) 9 mg/dL (9.8-20.1); Calc. Creatinine Clearance 50 mL/min (70-130); Calcium 8.2 mg/dL (7.8-10.44); Carbon Dioxide 20 mmol/L (23-31); Chloride 107 mmol/L (98-107); Estimated GFR 87; Glucose 96 mg/dL (83-110); Potassium 3.9 mmol/L (3.5-5.1); Sodium 136 mmol/L (136-145)
[2024-07-17 09:03] VITALS: BP 130/78
[2024-07-17 12:36] VITALS: TEMP 98
[2024-07-17] MEDS ORDERED: Tamsulosin HCl 0.4 MG CAP PO SCH (21:00)
== END 2024-07-17 14:24 | DRG 947 ==
LOC: ERS 00:10 → 2NO 02:27 → OBSVTOIN 12:11 → T4-B 07-11 16:35
PROVIDERS: ADMIT Internal Medicine; ATTEND Internal Medicine
DX: R53.1 Weakness (principal); I21.A1 Myocardial infarction type 2; E46 Unspecified protein-calorie malnutrition; I50.32 Chronic diastolic (congestive) heart failure; Z68.1 Body mass index [BMI] 19.9 or less, adult; E87.20 Acidosis, unspecified; N39.0 Urinary tract infection, site not specified; G47.00 Insomnia, unspecified; E03.9 Hypothyroidism, unspecified; K21.9 Gastro-esophageal reflux disease without esophagitis; G89.29 Other chronic pain; E87.6 Hypokalemia; I11.0 Hypertensive heart disease with heart failure; K59.00 Constipation, unspecified; R33.9 Retention of urine, unspecified; Z88.8 Allergy status to other drugs, medicaments and biological substances; Z91.018 Allergy to other foods; R41.0 Disorientation, unspecified
CPT/HCPCS: 36415; 51701; 70450; 71045; 71250; 71260; 72125; 74018; 74177; 80048; 80053; 80307; 81001; 82550; 82805; 83605; 83690; 83735; 83880; 84100; 84145; 84484; 85025; 87040; 87428; 93005; 96365; 96372; 96374; 96375; G0378; J0696; J1630; J1650; J2405; J3480; J3490; J7030; Q9967

== ENCOUNTER 2024-10-12 09:38 | Emergency (ER) | payer MEDICARE, BC ==
[2024-10-12 10:16] LABS: #Basophils Less than 0.03 10x3/uL (0.0-0.2); %Basophils 0.2 % (0.0-1.0); %Eosinophils 2.2 % (0.0-10.0); %Lymphocytes 14.4 % (21.0-51.0); %Monocytes 10.7 % (0.0-10.0); %Neutrophils 72.2 % (42.0-75.0); Hemoglobin 12.4 g/dL (12.0-16.0); Mean Corpuscular HGB CONC 33.5 g/dL (32.0-36.0); Mean Corpuscular Hemoglobin 31.4 pg (27.0-31.0); Mean Corpuscular Volume 93.7 fL (78.0-98.0); Mean Platelet Volume 9.7 fL (7.4-10.4); Platelet Count 306 10x3/uL (130-400); RBC Distribution Width 12.2 % (11.5-14.5); Red Blood Cell (RBC) Count 3.95 mill/uL (4.20-5.40)
[2024-10-12 10:37] LABS: ALT (SGPT) 7 U/L (Less than 34); AST (SGOT) 19 U/L (11-34); Albumin 3.4 g/dL (3.1-4.5); Alkaline Phosphatase 45 U/L (40-110); Anion Gap 14 mmol/L (10-20); BUN (Urea Nitrogen) 9 mg/dL (9.8-20.1); Bilirubin, Total 0.3 mg/dL (0.3-1.2); Calc. Creatinine Clearance 0 mL/min (70-130); Calcium 8.8 mg/dL (7.8-10.44); Carbon Dioxide 24 mmol/L (23-31); Chloride 100 mmol/L (98-107); Estimated GFR 88; Globulin 2.9 g/dL (2.4-3.5); Glucose 92 mg/dL (83-110); Lipase 10 U/L (8-78); Magnesium 2.3 mg/dL (1.6-2.6); Potassium 4.2 mmol/L (3.5-5.1); Protein, Total 6.3 g/dL (5.8-8.1); Sodium 134 mmol/L (136-145)
[2024-10-12 10:43] LABS: Troponin I 0.017 ng/mL (< 0.028)
[2024-10-12] MEDS ORDERED: HYDROcodone/Acetaminophen 10/325 mg Tablet ONE (12:26)
== END 2024-10-12 12:56 | disposition home or self-care (01) ==
LOC: ERS 09:38
DX: S20.211A Contusion of right front wall of thorax, initial encounter (principal); I10 Essential (primary) hypertension; W19.XXXA Unspecified fall, initial encounter
CPT/HCPCS: 36415; 70450; 71045; 72125; 80053; 83690; 83735; 83880; 84484; 85025; 93005